=== PATIENT | female | born 1950 | race Caucasian/White ===

== ENCOUNTER 2017-05-31 18:37 | Emergency (ER) | payer BC, MEDICARE ==
[~2017-05-31] VITALS: Ht 165.1 cm; Wt 54.4 kg
[~2017-05-31 18:37] MED LIST: AMOX1TAB49 PO; AMPH30TA3 PO; Acetaminophen PO; BUPR200T2 PO; CLON0.5T4 PO; METR500T PO; OMEG500C PO; ZALE10CA28 PO
[2017-05-31] MEDS ORDERED: ATOR20TA PO (19:06)
--- NOTE | 2017-05-31 19:07 | NUR ---
[facility] AT BEDSIDE
[2017-05-31 19:49] LABS: BASOPHILS # (AUTO) 0.1 K/uL (0.0-8.0); BASOPHILS % (AUTO) 0.8 % (0.0-2.0); EOSINOPHILS # (AUTO) 0.3 K/uL (0.0-0.7); EOSINOPHILS % (AUTO) 3.2 % (0.0-7.0); HEMATOCRIT 41.8 % (37-47); HEMOGLOBIN 14.3 G/DL (12.0-16.0); LYMPHOCYTES # (AUTO) 2.3 K/UL (0.8-4.8); MEAN CORPUSCULAR HEMOGLOBIN 32.1 UUG (27.0-31.0); MEAN CORPUSCULAR HGB CONC 34 g/dL (32.0-37.0); MONOCYTES # (AUTO) 0.8 K/UL (0.1-1.30); MONOCYTES % (AUTO) 7.7 % (0.0-11.0); NEUTROPHILS # (AUTO) 7.3 K/UL (1.8-8.9); NEUTROPHILS % (AUTO) 67.3 % (38.5-71.5); PLATELET COUNT (AUTO) 249 K/UL (150-450); RED BLOOD CELL COUNT(AUTO) 4.45 MIL/UL (4.2-5.4); WHITE BLOOD COUNT (AUTO) 10.8 K/UL (4.0-11.2)
[2017-05-31 19:54] LABS: CARBON DIOXIDE 31 mmol/L (21-32); CHLORIDE 105 mmol/L (98-107); CREATININE 0.8 mg/dL (0.6-1.3); GLUCOSE 101 mg/dL (74-106); POTASSIUM 4.2 mmol/L (3.5-5.1); UREA NITROGEN, BLOOD 34 mg/dL (7-18)
[2017-05-31 20:00] LABS: ALANINE AMINOTRANSFERASE 33 U/L (14-59); ALKALINE PHOSPHATASE 63 U/L (50-136); ASPARTATE AMINOTRANSFERASE 20 U/L (15-37); BILIRUBIN,DIRECT 0.1 mg/dL (0.0-0.2); BILIRUBIN,TOTAL 0.4 mg/dL (0.2-1.0); TOTAL PROTEIN, SERUM 6.4 g/dL (6.4-8.2)
[2017-05-31 20:01] LABS: ACETAMINOPHEN < 2.0 ug/mL (10-30)
[2017-05-31 20:09] LABS: ETHANOL < 3 MG/DL (0-0)
[2017-05-31 20:23] LABS: THYROID STIMULATING HORMONE 0.932 mIU/mL (0.358-3.740)
--- NOTE | 2017-05-31 20:56 | NUR ---
Richy Lee at bedside for PET evaluation.
--- NOTE | 2017-05-31 21:40 | NUR ---
Call placed to patient's , at patient's request, to pick her up for discharge home.
--- NOTE | 2017-05-31 21:59 | NUR ---
Patient discharged to home in stable conditon. Written and verbal after care instructions given. Patient, and her , verbalize understanding of instructions.
== END 2017-05-31 22:00 | disposition home or self-care (01) ==
LOC: ER 18:37
DX: S30.0XXA Contusion of lower back and pelvis, initial encounter (principal); E86.0 Dehydration; F32.9 Major depressive disorder, single episode, unspecified; E78.00 Pure hypercholesterolemia, unspecified; Z85.3 Personal history of malignant neoplasm of breast; Z88.1 Allergy status to other antibiotic agents; W10.9XXA Fall (on) (from) unspecified stairs and steps, initial encounter; Y93.89 Activity, other specified; Y92.89 Other specified places as the place of occurrence of the external cause; Y99.8 Other external cause status
CPT/HCPCS: 80048; 80076; 84443; 85025; 93005; 99285; A4663; G0480 ×2; G0481